=== PATIENT | male | born 1990 | race African-American/Black ===

== ENCOUNTER 2016-10-02 16:56 | Emergency (ER) | payer OTHER ==
[~2016-10-02] VITALS: Ht 167.6 cm; Wt 72.6 kg
[2016-10-02 17:17] VITALS: BP 121/49
[2016-10-02] MEDS ORDERED: TETRACAINE HCL 0.5% OPTH(EYE) SOLN 4ML RIGHTEYE ONE (18:45)
[2016-10-02] MEDS ORDERED: FLUORESCEIN SOD 1 MG TEST STRIP RIGHTEYE ONE (19:15)
[2016-10-02] MEDS ORDERED: GENTAMICIN OPTH sol 0.3% 5ml RIGHTEYE ONE (20:15)
== END 2016-10-02 20:31 | disposition home or self-care (01) ==
LOC: ER 17:07
DX: T15.91XA Foreign body on external eye, part unspecified, right eye, initial encounter (principal); H10.9 Unspecified conjunctivitis; Y93.89 Activity, other specified; Y99.8 Other external cause status; Y92.89 Other specified places as the place of occurrence of the external cause
CPT/HCPCS: 10120